=== PATIENT | female | born 1935 | race Caucasian/White ===

== ENCOUNTER 2016-11-10 13:13 | Emergency (ER) | payer MEDICARE, OTHER | END 2016-11-10 16:40 | disposition home or self-care (01) | LOC: FER 13:13 | DX: K57.32 Diverticulitis of large intestine without perforation or abscess without bleeding (principal); I10 Essential (primary) hypertension; Z79.82 Long term (current) use of aspirin; Z79.899 Other long term (current) drug therapy; Z90.49 Acquired absence of other specified parts of digestive tract ==

== ENCOUNTER 2020-09-25 18:33 | Inpatient (IN) | payer MEDICARE, OTHER ==
[2020-09-25 20:51] LABS: BASOPHIL 0.3 % (0-2); EOSINOPHIL 0.1 % (0-7); HCT 42.3 % (37.0-47.0); HGB 14.1 g/dl (12.5-16.0); LYMPHOCYTE 8.1 % (15-48); MCH 29.2 pg (25.0-31.0); MCHC 33.3 g/dL (32.0-36.0); MCV 87.6 fL (78.0-100.0); MONOCYTE 6.1 % (0-12); MPV 12.8 fL (6.0-9.5); NRBC 0; PLT 193 K/uL (150-400); RBC 4.83 M/uL (4.20-5.40); RDW 13.6 % (11.5-14.0); WBC 14.2 K/uL (4.0-10.5)
[2020-09-25 21:08] LABS: ALBUMIN 3.9 g/dL (3.4-5.0); BILIRUBIN - DIRECT 0.5 mg/dL (0.00-0.20); BILIRUBIN - TOTAL 1.3 mg/dL (0.2-1.0); BUN/CREAT RATIO (CALC) 15.6 RATIO; C-REACTIVE PROTEIN 2.5 mg/dL (<=0.90); CREATININE 0.77 mg/dL (0.51-0.95); GLOBULIN (CALCULATION) 2.9 g/dL; POTASSIUM 4.5 mmol/L (3.5-5.1); TOTAL PROTEIN 6.8 g/dL (6.4-8.2)
[2020-09-25 21:11] LABS: INR 1.13 (0.9-1.2); PROTHROMBIN TIME 13.8 SECONDS (11.4-13.6); PTT 31.2 SECONDS (22.2-34.7)
[2020-09-25 21:18] LABS: LACTIC ACID 1.8 mmol/L (0.4-1.9)
[2020-09-26 03:31] LABS: FT4 (FREE T4) 1.3 ng/dL (0.76-1.46); MAGNESIUM 1.7 mg/dL (1.8-2.4); PHOSPHORUS 3.5 mg/dL (2.6-4.7)
[2020-09-26] MEDS ORDERED: SYNTHROID88 MCG PO (04:12)
[2020-09-26] MEDS ORDERED: PRINIVIL10 MG PO (04:13)
[2020-09-26] MEDS ORDERED: VITAMIN D350 MC5 PO (04:14)
[2020-09-26] MEDS ORDERED: VITAMIN E400 UNI1 PO (04:14)
[2020-09-26] MEDS ORDERED: CYTOMEL25 MCG PO (04:15)
[2020-09-26 10:14] LABS: HCT 38.4 % (37.0-47.0); HGB 12.4 g/dl (12.5-16.0); MCH 29.2 pg (25.0-31.0); MCHC 32.3 g/dL (32.0-36.0); MCV 90.6 fL (78.0-100.0); MPV 12.1 fL (6.0-9.5); RBC 4.24 M/uL (4.20-5.40); RDW 14.1 % (11.5-14.0); WBC 12.9 K/uL (4.0-10.5)
[2020-09-26 10:24] LABS: ALBUMIN 3.2 g/dL (3.4-5.0); ALKALINE PHOSHATASE 64 U/L (46-116); ALT 157 U/L (14-59); AMYLASE 890 U/L (25-115); AST 103 U/L (15-37); BILIRUBIN - TOTAL 0.8 mg/dL (0.2-1.0); BUN 12 mg/dL (7-18); BUN/CREAT RATIO (CALC) 14.5 RATIO; CHLORIDE 102 mmol/L (98-107); CO2 (BICARBONATE) 28 mmol/L (21-32); CREATININE 0.83 mg/dL (0.51-0.95); GLOBULIN (CALCULATION) 3.3 g/dL; GLUCOSE 106 mg/dL (74-106); LIPASE >2250 U/L (73-393); POTASSIUM 4.5 mmol/L (3.5-5.1); TOTAL PROTEIN 6.5 g/dL (6.4-8.2)
[2020-09-26 13:31] LABS: BILIRUBIN NEGATIVE (NEGATIVE); BLOOD TRACE-INTACT Ery/uL (NEGATIVE); CLARITY CLEAR (CLEAR); COLOR YELLOW (YELLOW); GLUCOSE (U) NORMAL (NORMAL); LEUKOCYTES NEGATIVE Leu/uL (NEGATIVE); NITRITE NEGATIVE (NEGATIVE); PROTEIN TRACE (LOW) mg/dL (NEGATIVE); SPECIFIC GRAVITY >=1.030 (1.001-1.030); UROBILINOGEN 0.2 mg/dL (0.2-1.0); pH 5.5 (5.0-9.0)
[2020-09-26 13:39] LABS: BACTERIA 1+; URINARY RBC RARE
[2020-09-27 08:32] LABS: HCT 35.8 % (37.0-47.0); HGB 11.4 g/dl (12.5-16.0); MCH 29.5 pg (25.0-31.0); MCHC 31.8 g/dL (32.0-36.0); MCV 92.7 fL (78.0-100.0); MPV 12.3 fL (6.0-9.5); RBC 3.86 M/uL (4.20-5.40); RDW 14.4 % (11.5-14.0); WBC 12.7 K/uL (4.0-10.5)
[2020-09-27 08:48] LABS: ALBUMIN 2.9 g/dL (3.4-5.0); BILIRUBIN - DIRECT 0.2 mg/dL (0.00-0.20); BILIRUBIN - TOTAL 0.6 mg/dL (0.2-1.0); BUN/CREAT RATIO (CALC) 18.7 RATIO; CREATININE 0.75 mg/dL (0.51-0.95); GLOBULIN (CALCULATION) 3.2 g/dL; POTASSIUM 4.5 mmol/L (3.5-5.1); TOTAL PROTEIN 6.1 g/dL (6.4-8.2)
[2020-09-28 06:17] LABS: ALBUMIN 2.5 g/dL (3.4-5.0); BILIRUBIN - TOTAL 0.7 mg/dL (0.2-1.0); BUN/CREAT RATIO (CALC) 22.8 RATIO; CREATININE 0.57 mg/dL (0.51-0.95); GLOBULIN (CALCULATION) 3.4 g/dL; POTASSIUM 3.8 mmol/L (3.5-5.1); TOTAL PROTEIN 5.9 g/dL (6.4-8.2)
--- NOTE | 2020-09-28 15:43 | NUR ---
PATIENT HR 110-120, DR HEREDIA NOTIFIED. WILL ORDER PRN DOSE OF METOPROLOL.
--- NOTE | 2020-09-29 14:26 | NUR ---
staff suggested a visit would help since pt. was having Wednesday surgery. Visited and prayed erika pt. a[ppeared very grateful.
[2020-09-30 07:03] LABS: BASOPHIL 0.9 % (0-2); HCT 32.3 % (37.0-47.0); HGB 10.6 g/dl (12.5-16.0); LYMPHOCYTE 14.5 % (15-48); MCH 29.7 pg (25.0-31.0); MCHC 32.8 g/dL (32.0-36.0); MCV 90.5 fL (78.0-100.0); MONOCYTE 8.9 % (0-12); MPV 13.2 fL (6.0-9.5); NEUTROPHIL 73.3 % (41-80); NRBC 0; PLT 160 K/uL (150-400); RBC 3.57 M/uL (4.20-5.40); RDW 13.5 % (11.5-14.0); WBC 8.1 K/uL (4.0-10.5)
[2020-09-30 07:07] LABS: INR 1.17 (0.9-1.2); PROTHROMBIN TIME 14.1 SECONDS (11.4-13.6); PTT 41.1 SECONDS (22.2-34.7)
[2020-09-30 07:26] LABS: ALBUMIN 2.5 g/dL (3.4-5.0); BILIRUBIN - TOTAL 0.5 mg/dL (0.2-1.0); BUN/CREAT RATIO (CALC) 10.4 RATIO; CREATININE 0.77 mg/dL (0.51-0.95); GLOBULIN (CALCULATION) 3.4 g/dL; POTASSIUM 4.1 mmol/L (3.5-5.1); TOTAL PROTEIN 5.9 g/dL (6.4-8.2)
[2020-09-30 07:49] LABS: AMYLASE 53 U/L (25-115); LIPASE 113 U/L (73-393)
[2020-10-01 06:01] LABS: BASOPHIL 0.3 % (0-2); EOSINOPHIL 1.1 % (0-7); HCT 30.1 % (37.0-47.0); HGB 9.7 g/dl (12.5-16.0); MCH 29.3 pg (25.0-31.0); MCHC 32.2 g/dL (32.0-36.0); MCV 90.9 fL (78.0-100.0); MONOCYTE 9.2 % (0-12); MPV 12.7 fL (6.0-9.5); NEUTROPHIL 72.9 % (41-80); NRBC 0; PLT 154 K/uL (150-400); RBC 3.31 M/uL (4.20-5.40); RDW 13.5 % (11.5-14.0); WBC 6.3 K/uL (4.0-10.5)
[2020-10-01 06:42] LABS: BUN/CREAT RATIO (CALC) 15.4 RATIO; CREATININE 0.78 mg/dL (0.51-0.95); MAGNESIUM 1.8 mg/dL (1.8-2.4)
[2020-10-01 08:56] LABS: RBC (FLUID) 33000 RBC/uL; WBC (FLUID) 1318 WBC/uL
[2020-10-01 08:59] LABS: CLARITY (FLUID) CLOUDY; COLOR (FLUID) RED
[2020-10-01 09:33] LABS: IRON % SATURATION 13.6 %SAT (20-50)
[2020-10-01 10:17] LABS: FOLIC ACID (SERUM) 49.3 ng/mL (8.6-58.9)
--- NOTE | 2020-10-01 14:48 | NUR ---
10/01/20 Ms. Duncan lives alone. She has 2 supportive children. Ms. Duncan was independent in the home and community prior to admission. Her son plans to loan her a s. stool. Ms. Duncan has a rw that belonged to her spouse. - Ms. Duncan doesn't believe HH serives are needed when she returns home.
[2020-10-02 06:13] LABS: BASOPHIL 1.1 % (0-2); EOSINOPHIL 3.1 % (0-7); HCT 31.8 % (37.0-47.0); HGB 10.5 g/dl (12.5-16.0); MCH 29.7 pg (25.0-31.0); MCV 89.8 fL (78.0-100.0); MONOCYTE 8.9 % (0-12); MPV 12.9 fL (6.0-9.5); NEUTROPHIL 65.6 % (41-80); NRBC 0; PLT 181 K/uL (150-400); RBC 3.54 M/uL (4.20-5.40); RDW 13.6 % (11.5-14.0); WBC 6.1 K/uL (4.0-10.5)
[2020-10-02 06:34] LABS: INR 1.47 (0.9-1.2); PROTHROMBIN TIME 16.9 SECONDS (11.4-13.6); PTT 39.3 SECONDS (22.2-34.7)
[2020-10-02 06:47] LABS: CREATININE 0.73 mg/dL (0.51-0.95); MAGNESIUM 1.9 mg/dL (1.8-2.4); POTASSIUM 3.8 mmol/L (3.5-5.1)
--- NOTE | 2020-10-02 10:34 | NUR ---
CHAD MORGAN WITH [employer]. SHE HAS SPOKEN WITH PT. AND SHE IS NOT INTERESTED IN A FOLLOW UP APPT. WITH DR. CRUZ. CATHY STATED THAT SHE WOULD NEED TO SEE THE DOCTOR IN ORDER TO GET THE HH ORDERS SIGNED FOR HER INR'S. ADVISED CATHY THAT I WOULD SPEAK WITH DR. BARBER AND LET HIM KNOW ABOUT PATIENT'S HESITENACY TO FOLLOW UP WITH THE
--- NOTE | 2020-10-02 10:48 | NUR ---
CHAD FROM [facility] SHE ADVSIED THAT SHE HAS SPOKEN WITH PATIENT AGAIN AND PT. HAS AGREED TO FOLLOW UP WITH DR. CRUZ.
--- NOTE | 2020-10-02 11:03 | NUR ---
ADVISED DR. BARBER OF [facility] TO SEE FOR FOLLOW UP. HOWEVER, CATHY WITH [employer] HAS SPOKEN WITH HER AND SHE HAS AGREED FOR FOLLOW UP WITH DR. CRUZ.
[2020-10-02] MEDS ORDERED: WARFARIN SODIUM5 MG PO ×2 (11:58→12:30)
[2020-10-02] MEDS ORDERED: METOPROLOL TART50 MG PO (11:58)
--- NOTE | 2020-10-02 13:36 | NUR ---
PATIENT GIVEN D/C INSTRUCTIONS, VERBALIZED UNDERSTANDING WITH NEW MEDICATIONS, FOLLOW UP APPOINTMENTS, HOME HEALTH AND INSTRUCTIONS.
--- NOTE | 2020-10-02 14:10 | NUR ---
REVIEWED [facility] RN CHARTING VERFIY THAT ALL INFORMATION WAS CORRECT AND TRUE
== END 2020-10-02 13:35 | disposition home health service (06) | DRG 418 ==
LOC: FER 18:33 → FMS 09-26 02:32
PROVIDERS: Internal Medicine; Nurse Practitioner; Student in an Organized Health Care Education/Training Program; ADMIT Allergy & Immunology Allergy
PROC: BF131ZZ Fluoroscopy of Gallbladder and Bile Ducts using Low Osmolar Contrast (ICD-10-PCS; 2020-09-30)
PROC: 0FT44ZZ Resection of Gallbladder, Percutaneous Endoscopic Approach (ICD-10-PCS; principal; 2020-09-30 13:00)
PROC: 0W9G4ZZ Drainage of Peritoneal Cavity, Percutaneous Endoscopic Approach (ICD-10-PCS; 2020-09-30 13:00)
DX: K85.10 Biliary acute pancreatitis without necrosis or infection (principal); R18.8 Other ascites; K80.00 Calculus of gallbladder with acute cholecystitis without obstruction; I10 Essential (primary) hypertension; E83.42 Hypomagnesemia; I48.91 Unspecified atrial fibrillation; E03.9 Hypothyroidism, unspecified; D64.9 Anemia, unspecified; Z20.822 Contact with and (suspected) exposure to COVID-19; D50.9 Iron deficiency anemia, unspecified; Z90.721 Acquired absence of ovaries, unilateral
CPT/HCPCS: 36415; 74300; 76705; 80048; 80053; 80076; 81001; 82150; 82607; 82746; 82945; 83540; 83550; 83605; 83690; 83735; 84100; 84145; 84439; 84443; 84478; 84484; 85025; 85610; 85730; 86140; 87040; 87070; 87205; 88305; 89051; 93005; 94010; 94760; 97116; 97162; 97166; 97530-GP; 97535; C9113; G0378; J0696; J1170; J1644; J1650; J1885; J2250; J2270; J2370; J2405; J2543; J2704; J2916; J3010; J3370; J3475; J7030; J7050; J7120; Q9967; U0002